=== PATIENT | female | born 2000 | race Caucasian/White ===

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

== ENCOUNTER 2022-05-14 18:41 | Emergency (ER) | payer OTHER, SELFPAY ==
[2022-05-14 18:50] VITALS: BP 127/60; PULSE 83; RESP 14; TEMP 36.9; O2SAT 99
[2022-05-14 18:57] VITALS: BP 127/60; PULSE 83; RESP 14; TEMP 36.9; O2SAT 99
--- NOTE | 2022-05-14 19:33 | ED.GENADULT ---
HPI - General Adult General Chief complaint: Dental/Oral Stated complaint: [place] tooth causing inflamation Source: patient Mode of arrival: ambulatory Limitations: no limitations History of Present Illness HPI narrative: Patient presents for evaluation of right lower dental pain for the last for 5 days. She reports that impacted wisdom tooth in the affected area. She tried taking 600 mg of ibuprofen with temporary relief of her pain. Pain is moderate, without descriptive quality. No fever, chills, nausea, vomiting, trismus or problems handling secretions. She does not smoke. Related Data Allergies Allergy/AdvReac Type Severity Reaction Status Date / Time butorphanol [From Stadol] Allergy Seizure Verified 05/14/22 18:55 Review of Systems Review of Systems: CONSTITUTIONAL: Denies fever, chills, or sweats. EYES: Denies visual changes, redness, or discharge. ENT: Reports right lower dental pain. Denies rhinorrhea, congestion, sore throat, or otalgia. CARDIOVASCULAR: Denies chest pain, palpitations, or edema. RESPIRATORY: Denies cough or dyspnea. GASTROINTESTINAL: Denies abdominal pain, nausea, vomiting, or diarrhea. GENITOURINARY: Denies dysuria or hematuria. SKIN: Denies rash or itching. MUSCULOSKELETAL: Denies back pain, joint pain, or myalgia. NEUROLOGIC: Denies headache, numbness, dizziness, or weakness. PSYCHIATRIC: Denies anxiety or depression. PMFSH Past Medical History Medical History Seizure Surgical History Surgical History No pertinent past surgical history Family History Family History Mother Family history non-contributory Social History Social History (Updated 05/14/22 @ 19:35 by [facility], ) Smoking status: Never smoker Living arrangements: with family Gender identity (if verbalized by the patient): Female Sexual Orientation (if Verbalized by the Patient): Straight or Heterosexual Spiritual care concerns: No Exam Narrative: GENERAL: Well-appearing, well-nourished, and in no acute distress. HEAD: Normocephalic, atraumatic. EYES: PERRLA and EOMI. ENT: Nares clear, no rhinorrhea or epistaxis. Mucous membranes moist. Oropharynx without tonsillar hypertrophy exudate or other lesions. Right lower wisdom tooth is partially impacted with swelling of the gumline surrounding the tooth. Bilateral TMs pearly montoya nonbulging NECK: Supple. No adenopathy or masses. No carotid bruits or JVD CHEST: Clear to auscultation. No respiratory distress. No wheezes rales or rhonchi HEART: Regular rate and rhythm. No murmur heard. Normal peripheral pulses. ABDOMEN: Soft, nontender, nondistended, normal active bowel sounds. EXTREMITIES: Normal range of motion. No edema. SKIN: Warm, dry, no rash. NEURO: No focal deficits. Alert and oriented x3. PSYCH: Normal mood and affect. Course Course Emergency Course: This is a 22-year-old female who presented for evaluation of right lower dental pain. She has evidence of to the patient. Will discharge ibuprofen 800 mg. And amoxicillin in the event that that she has a developing infection. Follow-up with dentist. Go to the ER for difficulty breathing or swelling. Patient in agreement with plan of care. Level of Care: Express Care Visit Vital Signs Vital signs: Vital Signs Temperature 36.9 C 05/14/22 18:50 Pulse Rate 83 05/14/22 18:50 Respiratory Rate 14 05/14/22 18:50 Blood Pressure 127/60 05/14/22 18:50 Pulse Oximetry 99 05/14/22 18:50 Oxygen Delivery Room Air 05/14/22 18:50 Temperature 36.9 C 05/14/22 18:57 Pulse Rate 83 05/14/22 18:57 Respiratory Rate 14 05/14/22 18:57 Blood Pressure 127/60 05/14/22 18:57 Pulse Oximetry 99 05/14/22 18:57 Oxygen Delivery Room Air 05/14/22 18:57 Medical Decision Making Vital S
== END 2022-05-14 19:39 | disposition home or self-care (01) ==
PROVIDERS: Emergency Provider Nurse Practitioner; PCP Obstetrics & Gynecology
DX: K01.1 Impacted teeth (principal)
CPT/HCPCS: 99213; G0463

== ENCOUNTER 2022-06-15 18:02 | Emergency (ER) | payer OTHER, SELFPAY ==
[2022-06-15 18:16] VITALS: BP 124/67; PULSE 74; RESP 16; TEMP 36.9; O2SAT 100
--- NOTE | 2022-06-15 19:05 | ED.GENADULT ---
HPI - General Adult General Chief complaint: Unspecified Stated complaint: tingling in left hand from IV Time Seen by Provider: 06/15/22 19:06 Source: patient, RN notes reviewed and old records reviewed Mode of arrival: ambulatory Limitations: no limitations History of Present Illness HPI narrative: 22 year old female who presents to express care with complaints of pain and feelings of numbness to her wrist and to her left index finger since having IV placed at [place] on the . Patient was seen at [facility] and was told to take Ibuprofen and Tylenol for discomfort and apply praveena wrap to area which patient states she did without improvement. Patient has full mobility of her left hand and wrist with no acute redness or swelling noted., no ecchymosis. Patient has full mobility of left hand and wrist with brisk capillary refill and strong left radial pulse. Patient is left hand dominant. MD complaint: tingling and numbness to left wrist and index finger from IV Onset (ago): day(s) (since 30 of May) Location: upper extremity (left radial wrist and left index finger) Radiation: other (from wrist left radial area IV site down left index finger reported) Severity scale (1-10): 6 Treatments prior to arrival: NSAID and other (praveena wrap) Related Data Allergies Allergy/AdvReac Type Severity Reaction Status Date / Time butorphanol [From Stadol] Allergy Seizure Verified 06/15/22 18:24 Review of Systems Review of Systems: CONSTITUTIONAL: Denies fever, chills, or sweats. EYES: Denies visual changes, redness, or discharge. ENT: Denies rhinorrhea, congestion, sore throat, or otalgia. CARDIOVASCULAR: Denies chest pain, palpitations, or edema. RESPIRATORY: Denies cough or dyspnea. GASTROINTESTINAL: Denies abdominal pain, nausea, vomiting, or diarrhea. GENITOURINARY: Denies dysuria or hematuria. SKIN: Denies rash or itching. no rash or inflammation or warmth at left wrist previous IV site. MUSCULOSKELETAL: Denies back pain, joint pain,reports pain to left radial aspect of wrist from previous IV site to left index finger with tingling and numbness sensations, or myalgia. NEUROLOGIC: Denies headache, numbness, or weakness. PSYCHIATRIC: Denies anxiety or depression. All systems reviewed & are unremarkable except as noted in HPI and below PMFSH Past Medical History Medical History Seizure Surgical History Surgical History No pertinent past surgical history Family History Family History Mother Family history non-contributory Social History Social History Smoking status: Never smoker Living arrangements: with family Gender identity (if verbalized by the patient): Female Sexual Orientation (if Verbalized by the Patient): Straight or Heterosexual Spiritual care concerns: No Comments At time of signature, agree with nursing past medical, surgical, social and family history. There is no relevant family history pertinent to the presenting complaint Exam Narrative: GENERAL: Well-appearing, well-nourished, and in no acute distress. HEAD: Normocephalic, atraumatic. EYES: PERRLA and EOMI. ENT: Nares clear, no rhinorrhea or epistaxis. Mucous membranes moist. NECK: Supple. no lymphadenopathy CHEST: Clear to auscultation. No respiratory distress. HEART: Regular rate and rhythm. No murmur heard. Normal peripheral pulses. ABDOMEN: Soft, nontender, nondistended, normal active bowel sounds. EXTREMITIES: Normal range of motion. No edema. movement of left wrist and left finger present, strong left radial pulse, fingers have brisk capillary refill.reports feeling of tingling or numbness left radial writ and index finger, hand warm pink and mobility intact. SKIN: Warm, dry, no rash. no warmth or redness or ecchymosis to left
== END 2022-06-15 19:27 | disposition home or self-care (01) ==
PROVIDERS: Emergency Provider Registered Nurse
DX: M25.532 Pain in left wrist (principal); M79.645 Pain in left finger(s)
CPT/HCPCS: 99213; G0463

== ENCOUNTER 2024-11-21 17:23 | Emergency (ER) | payer OTHER, SELFPAY ==
--- NOTE | ~2024-11-21 | XR_ITS ---
EXAMINATION: XR chest 2V, 11/21/2024 17:45 CDT HISTORY: sob/ant cp bilateral ribs COMPARISON: No comparisons available. Technique: 2 views obtained. Findings: The lungs are clear, no effusion. No pneumothorax. Heart is normal size. Mediastinal and hilar contours are within normal limits. Bony thorax no acute abnormality. Impression: No acute cardiopulmonary abnormality. Reviewed, dictated and finalized at location P. Impression: No acute cardiopulmonary abnormality.
--- OUTSIDE RECORDS SUMMARY | 2024-11-21 17:28 | XMS_ITS | Encounter Summary ---
Author Organization [facility] Healthcare Address [address] [place] [address] Care Team Providers Care Cow Washer Name Role Phone Oren Caballero MD Primary Care Provi juan Reason for Referral * MRI/CAT/PET Scan (Routine) - Closed Specialty Diagnoses / Procedures Referred By Contac t Referred To Contact Radiology Diagnoses Dysuria Procedures MRI Pelvis W WO Contrast MRI PELVIS W CONTRAST Megan Astorga MD Phone: tel: fax: [address] [phone] Referral ID Status Reason Start Date Expiration Date Visits Re quested Visits Authorized [id number] Closed 05/29/2024 06/28/2025 1 1 Encounter Details Date Type Department Care Team (Late st Contact Info) Description 05/29/2024 Community Orders [facility] [place] [id number] [place] [address] Dysuria (Primary Dx) Social History Tobacco Use Types Packs/Day Years Used Date Smoking Tobacco: Never Passive Smoke Exposure: Past Smokeless Tobacco: Never Alcohol Use Standard Drinks/Week Comments Not Currently 0 (1 standard drink = 0.6 oz pur e alcohol) Social Connection and Isolation Panel Answer Date Recorded In a typical week, how many times do you talk on the phone with family, friends, or neighbors? More than three times a week 02/17/2022 How often do you get togethe r with friends or relatives? More than three times a week 02/17/2022 How often do you attend chur ch or uatsdin services? Never 02/17/2022 Do you belong to any clubs o r organizations such as spiritism groups, unions, fraternal or athletic groups, or school groups? No 02/17/2022 How often do you attend meet ings of the clubs or organizations you belong to? Never 02/17/2022 Are you , , di vorced, , never , or living with a partner? Living with partner 02/17/2022 AUDIT-C Answer Date Recorded Frequency of Alcohol Consumption Not on file 06/19/2022 Q2: How many drinks containi ng alcohol do you have on a typical day when you are drinking? Patient does not drink Frequency of Binge Drinking Not on file 02/2022 Overall Financial Resource Strain (CARDIA) Answe r Date Recorded How hard is it for you to pa y for the very basics like food, housing, medical care, and heating? Not hard at all 02/17/2022 PHQ-2 Answer Date Recorded PHQ-2 Total Score (If total score is 3 or more points, staff should administer the PHQ-9) 0 04/29/2024 Hunger Vital Sign Answer Date Recorded Within the past 12 months, y ou worried that your food would run out before you got the money to buy more. Never true 05/20/19 25 Within the past 12 months, t he food you bought just didn't last and you didn't have money to get more. Never true 05/19/2024 PRAPARE - Transportation Answer Date Re corded In the past 12 months, has l ack of transportation kept you from medical appointments or from getting medications? No 01/21 In the past 12 months, has l ack of transportation kept you from meetings, work, or from getting things needed for daily living? No 02/17/2022 Housing Stability Vital Sign Answer Miki e Recorded In the last 12 months, was t here a time when you were not able to pay the mortgage or rent on time? No 02/17/2022 In the last 12 months, how many places have you lived? 1 02/17/2022 In the last 12 months, was t here a time when you did not have a steady place to sleep or slept in a custodial (including now)? No 02/17/2022 PHQ-9 Answer Date Recorded PHQ-9 Total Score 0 04/29/2024 Personal Safety Answer Date Recorded Have you ever been in or are you currently in a harmful physical or emotional relationship or is someone making you feel afraid or unsafe? Denies 03/28/2024 Comments No Sex and Gender Information Value Date Recorded Sex Assigned at Not on file Legal Sex Female 6:02 PM [employer] Gender Identity Female 06/26/2021 1:23 AM CDT Sexual Orientation Bisexual 06/26/2021 1: 23 AM CDT documented as of this encounter Plan of Treatment Not on file documented as of this encounter Results * MRI Pelvis W WO Contrast (06/10/2024 3:31 PM CDT) Anatomical Region Laterality Modality Pelvis N/A Magnetic Resonan ce 06/16/2024 1:3 4 PM CDT Narrative 06/16/2024 2:24 PM CDT EXAM DESCRIPTION: MRI PELVIS W WO CONTRAST REASON FOR STUDY: dysuria Chronic UTIs since she was a small child, patient states they are wanting to r/o urethral diverticula, voiding cystourethrogram done here 04/25/24 that showed Mild nonspecific patulous appearance of the urethra without definite evidence of a diverticulum, however there is significantly Suboptimal exam due to suboptimal distention of the urinary bladder with contrast due to persistent leakage of contrast from the urinary bladder into the urethra. TECHNIQUE: MRI of the pelvis performed without intravenous contrast according to the urethra protocol. All images stored on PACS. COMPARISON: Voiding urethrogram dated April 25, 2024. Pelvic ultrasound dated March 28, 2024 FINDINGS: BLADDER/URETHRA: No focal bladder wall thickening or nodularity. No diverticula RIGHT OVARY: Normal size. No masses. LEFT OVARY: Normal size. No masses. UTERUS: Normal size. No masses. Normal endometrium. Junctional zone normal. The IUD is in place. VAGINA: Normal. PELVIC SIDEWALL: Normal. No masses. LYMPH NODES: No pathologically enlarged lymph nodes. GI: Normal. MUSCULOSKELETAL: No abnormal marrow signal. OTHER: Physiological amount of free fluid is seen. IMPRESSION: Normal female pelvic MRI. No evidence of urethral diverticulum. THIS IS AN ELECTRONICALLY VERIFIED FINAL REPORT 06/16/2024 2:24 PM - Electronically signed by Terry Dash M.D. JA: BREANNA Report ID: [id number] Reading Location: [id number] Procedure Note Terry Dash MD - 06/16/2024 EXAM DESCRIPTION: MRI PELVIS W WO CONTRAST REASON FOR STUDY: dysuria Chronic UTIs since she was a small child, patient states they are wantingto r/o urethral diverticula, voiding cystourethrogram done here 04/25/24 that showed Mild nonspecific patulous appearance of the urethra withoutdefinite evidence of a diverticulum, however there is significantly Suboptimalexam due to suboptimal distention of the urinary bladder with contrast due to persistent leakage of contrast from the urinary bladder into the urethra. TECHNIQUE: MRI of the pelvis performed without intravenous contrast according to the urethra protocol. All images stored on PACS. COMPARISON: Voiding urethrogram dated April 25, 2024. Pelvic ultrasound dated March 28, 2024 FINDINGS: BLADDER/URETHRA: No focal bladder wall thickening or nodularity. No diverticula RIGHT OVARY: Normal size. No masses. LEFT OVARY: Normal size. No masses. UTERUS: Normal size. No masses. Normal endometrium. Junctional zone normal. The IUD is in place. VAGINA: Normal. PELVIC SIDEWALL: Normal. No masses. LYMPH NODES: No pathologically enlarged lymph nodes. GI: Normal. MUSCULOSKELETAL: No abnormal marrow signal. OTHER: Physiological amount of free fluid is seen. IMPRESSION: Normal female pelvic MRI. No evidence of urethral diverticulum. THIS IS AN ELECTRONICALLY VERIFIED FINAL REPORT 06/16/2024 2:24 PM - Electronically signed by Terry Dash M.D. JA: BREANNA Report ID: [id number] Reading Location: [id number] us Megan Abdalla MD IMG MRI PROCEDURES Final Resul t documented in this encounter Visit Diagnoses Diagnosis Dysuria- Primary Dysuria documented in this encounter Care Teams Cow Washer Relationship Specialty Start Date End Date Oren Caballero MD [address] [address] PCP - General Family Practice 11/07/23 documented as of this encounter
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
--- NOTE | 2024-11-21 17:30 | ED.CHESTPAIN ---
HPI - Chest Pain General Chief Complaint: Chest Pain Stated Complaint: Chest Pain/Rib Pain Time Seen by Provider: 11/21/24 17:30 Source: patient Mode of arrival: ambulatory Limitations: no limitations History of Present Illness HPI narrative: Dejah is a 24-year-old female patient presenting to the clinic today with complaints of chest pain off and on for 4 years however over the last 1.5 week she developed bilateral lower rib pain. She has seen cardiology for the chest pain and she had echo completed and it showed MVP. States the pain is worse with taking a deep breath. Is currently having pain over the anterior chest and over the bilateral lower ribs. Rates pain 6/10. Denies URI symptoms. No blood clotting disorder history. Does have an IUD- Mirena. Related Data Allergies Allergy/AdvReac Type Severity Reaction Status Date / Time butorphanol (From Stadol) Allergy Seizure Verified 11/21/24 17:30 Review of Systems Review of Systems: Pertinent positives per HPI. Patient denies any fever, chills, rash, headache, visual changes, dizziness, cough, shortness of breath, chest pain, palpitations, nausea, vomiting, diarrhea, constipation, abdominal pain, or any urinary issues. [facility] Past Medical History Medical History Seizure Surgical History Surgical History No pertinent past surgical history Family History Family History Mother Family history non-contributory Social History Social History Smoking status: Never smoker Living arrangements: with family Gender identity (if verbalized by the patient): Female Sexual Orientation (if Verbalized by the Patient): Straight or Heterosexual Spiritual care concerns: No Comments At the time of my signature, I reviewed and agree with the nursing past medical, surgical, social, and family history. There is no relevant family history pertinent to the patient complaint. Exam Narrative: General: Well-developed, well nourished, in no apparent distress Head: Normocephalic, atraumatic Eyes: Pupils equally round and reactive to light bilaterally, EOM intact, sclera and conjunctive clear, no discharge, lids normal Ears: TMs intact and clear, ear canals clear, no drainage, grossly hearing normal. Nose: Nares patent, no discharge, no inflammation, no sinus tenderness. Mouth: Oral pharynx without lesions or masses, good dentition, MMM. Neck: Supple, trachea midline, no enlargement of anterior or posterior cervical nodes, no thyroid masses or goiter palpable. Cardio: Regular rate and rhythm, s1 and s2 normal, no murmur appreciated. Anterior chest wall tenderness to palpation, right lower rib bilateral tenderness to palpation Resp: Clear to auscultation bilaterally, no rhonchi, rales, wheezing or rubs Course Course Emergency Course: Portions of this record may have been created with voice recognition software. Level of Care: Express Care Visit Vital Signs Vital signs: Vital Signs Temperature 36.6 C 11/21/24 17:33 Pulse Rate 86 11/21/24 17:33 Respiratory Rate 20 11/21/24 17:33 Blood Pressure 125/66 11/21/24 17:33 Pulse Oximetry 99 11/21/24 17:33 Oxygen Delivery Room Air 11/21/24 17:33 Temperature 36.6 C 11/21/24 17:33 Pulse Rate 86 11/21/24 17:33 Respiratory Rate 20 11/21/24 17:33 Blood Pressure 125/66 11/21/24 17:33 Pulse Oximetry 99 11/21/24 17:33 Oxygen Delivery Room Air 11/21/24 17:33 Vital signs reviewed MDM - Chest Pain MDM Narrative Medical decision making narrative: At the time of visit patient is resting comfortably on the exam table. Patient appears to be nontoxic. Complaints of chest pain off and on for 4 years however over the last 1.5 week she developed bilateral lower rib pain. She has seen cardiology for the chest pain and she had echo completed and it showed MVP. States the pain is worse with taking a deep breath. Is currently having pain over the anterior chest and over the bilateral lower ribs. Rates pain 6/10. Denies URI symptoms. No blood clotting disorder history. Does have an IUD- Mirena. Lung sounds are clear, heart rates regular rate, rhythm, anterior chest wall tenderness to palpation, and bilateral lower rib tenderness to palpation. EKG and chest x-ray was ordered. EKG: EKG shows sinus rhythm with a heart rate of 60 6 minutes with a possible right ventricular conduction delay no ST elevation, depression, or T-wave inversion Diagnostics: Chest x-rays negative for any acute cardiopulmonary process Plan: I suspect patient has acute chest wall pain versus pleuritic chest pain. Prescription for naproxen was sent to the pharmacy. Work note was given for the patient. Recommend follow-up with her PCP in 3-5 days. Supportive measures were discussed with the patient and they voiced understanding discharge instructions and agrees to treatment plan. Return precautions reviewed Differential Diagnosis Differential diagnosis: Likely fracture of rib, pneumothorax, stable angina, unstable angina pectoris, atypical chest pain, st elevation myocardial infarction, costochondritis, chest pain and other (Pleuritic chest pain, atypical chest pain) ECG Data EKG #1: Attestation: I personally reviewed and interpreted this ECG as follows: ECG completion date: 11/21/24 ECG completion time: 18:08 Prior ECG tracings: not available for review Interpretation: EKG shows sinus rhythm with a possible right ventricular conduction delay. Heart rate 66 beats per minute. No ST elevation, depression, or T-wave inversion. CA interval is 132 milliseconds, QRS durations 89 milliseconds, QT-QTC is 379-393 milliseconds, P-R-T axis -1 18 26 Discharge Plan Discharge Clinical Impression: Anterior chest wall pain Patient Disposition: Home Condition: Stable Instructions: Antibiotic Form, Chest Wall Pain (ED) Additional Instructions: EKG is reassuring in the clinic today. Chest x-ray is negative for any acute cardiopulmonary process. I suspect you are having chest wall pain verses pleuritic chest pain. Take naproxen as prescribed Increase fluids and stay well hydrated May take Tylenol additionally as needed for pain Follow-up with rehab/pre vocational counselor/PCP 3-5 days Go to the emergency room if symptoms worsen-increase in chest pain, shortness of breath, weakness, lethargy, or any other concerning symptoms Patient Language: Yakut Prescriptions: New naproxen 500 mg tablet 500 mg PO BID PRN (Reason: pain) 7 Days Qty: 14 0RF Follow-up/Referrals: Federico,Oren Jain MD [Primary Care Provider, Unknown] Stand Alone Forms: Work/School Release IP Time of Disposition: 18:04 Quality NIHSS Nursing Documentation ED NIHSS nursing documentation: reviewed/agree
[2024-11-21 17:33] VITALS: BP 125/66; PULSE 86; RESP 20; TEMP 36.6; O2SAT 99
--- NOTE | 2024-11-21 17:43 | ECG_ITS ---
Test Date: 2024-11-21 18:00:17 Measurements Intervals [place] Rate: 66 P: -1 DE: 132 QRS: 18 QRSD: 89 T: 26 QT: 379 QTc: 399 Interpretive Statements SINUS RHYTHM POSSIBLE RIGHT VENTRICULAR CONDUCTION DELAY BORDERLINE ECG No previous ECG available for comparison Electronically Signed On 11-21-2024 19:21:22 CDT by Shabbir Ibarra D.O.
== END 2024-11-21 18:18 | disposition home or self-care (01) ==
PROVIDERS: Emergency Provider Nurse Practitioner Family; PCP Family Medicine
DX: R07.89 Other chest pain (principal); I34.1 Nonrheumatic mitral (valve) prolapse
CPT/HCPCS: 71046; 93005; 99213; G0463

== ENCOUNTER 2025-02-05 16:33 | Emergency (ER) | payer OTHER, SELFPAY ==
--- OUTSIDE RECORDS SUMMARY | 2025-02-05 16:37 | XMS_ITS | Encounter Summary ---
Author Organization [facility] Address [address] [place] [address] Care Team Providers Care Inner Tube Inserter Name Role Phone Oren Caballero MD Primary Care Provi juan Reason for Referral * MRI/CAT/PET Scan (Routine) - Closed Specialty Diagnoses / Procedures Referred By Contac t Referred To Contact Radiology Diagnoses Dysuria Procedures MRI Pelvis W WO Contrast MRI PELVIS W CONTRAST Megan Astorga MD Phone: tel: fax: [address] [phone] Referral ID Status Reason Start Date Expiration Date Visits Re quested Visits Authorized [id number] Closed 05/29/2024 06/28/2025 1 1 Encounter Details Date Type Department Care Team (Late st Contact Info) Description 05/29/2024 Community Orders [facility] [address] [place] [address] Dysuria (Primary Dx) Social History Tobacco Use [...] often do you attend chur ch or episcopalian services? Never 02/17/2022 Do you belong to any clubs o r organizations such as cheondoism groups, unions, fraternal or athletic groups, or [...] place to sleep or slept in a fpc (including now)? No 02/17/2022 PHQ-9 Answer Date [...] on file Legal Sex Female 6:02 PM OVER [employer]PER[employer]OR Gender Identity Female 06/26/2021 1:23 AM CDT Sexual Orientation Bisexual 06/26/2021 1: 23 AM CDT documented as of this encounter Plan of Treatment Not on file documented as of this encounter Results * MRI Pelvis W WO Contrast (06/10/2024 3:31 PM CDT) Anatomical Region Laterality Modality Pelvis N/A Magnetic Resonan ce 06/16/2024 1:34 PM CDT Narrative 06/16/2024 2:24 PM CDT [...] Terry Dash M.D. JA: BREANNA Report ID: [id number] Reading Location: [id number] Procedure Note Terry Dash MD - 06/16/2024 [...] Terry Dash M.D. JA: BREANNA Report ID: [id number] Reading Location: [id number] us Megan Abdalla MD IMG MRI PROCEDURES Final Resul t documented in this encounter Visit Diagnoses Diagnosis Dysuria- Primary Dysuria documented in this encounter Care Teams Inner Tube Inserter Relationship Specialty Start Date End Date Oren Caballero MD [address] [facility] [address] [place] [address] PCP - General Family Practice 11/07/23 documented as of this encounter
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
--- OUTSIDE RECORDS SUMMARY | 2025-02-05 16:38 | XMS_ITS | Encounter Summary ---
Author Organization [facility] Healthcare Address [address] [place] [address] Care Team Providers Care Safe And Vault Mechanic Name Role Phone Oren Caballero MD Primary Care [facility] Encounter Details Date Type Department Care Team (Late st Contact Info) Description 12/09/2024 Results Follow-Up [facility] Primary Care at [address] [place] [address] Oren Caballero MD [address] [place] [address] Stress Treadmill Test, 48 HR Holter Monitor Social History Tobacco Use Types Packs/Day Years [...] often do you attend chur ch or confucianist services? Never 02/17/2022 Do you belong to any clubs o r organizations such as yazdanism groups, unions, fraternal or athletic groups, or [...] place to sleep or slept in a senior care (including now)? 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
[2025-02-05 16:42] VITALS: BP 125/81; PULSE 74; RESP 20; TEMP 36.6; O2SAT 99
--- NOTE | 2025-02-05 17:07 | ED_ITS ---
HPI - Back Pain/Injury General Chief Complaint: Back Pain/Injury Stated Complaint: Back Pain Time Seen by Provider: 02/05/25 16:55 Source: patient and RN notes reviewed Mode of arrival: ambulatory Limitations: no limitations History of Present Illness HPI Narrative: 25-year-old female presents Express Care complaining of low back pain that started 2 days ago. Patient is on any apparent injury but she reports she works at [employer] and lifts heavy items frequently. Patient reports pain to her bilateral lower back that radiates pain into her bilateral thighs. Patient denies any saddle anesthesia, numbness, tingling, weakness, loss of bowel or bladder function, urinary symptoms, or any other symptoms. Patient has not taken anything to help with symptoms. Related Data Allergies Allergy/AdvReac Type Severity Reaction Status Date / Time butorphanol (From Stadol) Allergy Seizure Verified 02/05/25 16:42 Review of Systems Review of Systems: CONSTITUTIONAL: Denies fever, chills, or sweats. EYES: Denies visual changes, redness, or discharge. ENT: Denies rhinorrhea, congestion, sore throat, or otalgia. CARDIOVASCULAR: Denies chest pain, palpitations, or edema. RESPIRATORY: Denies cough or dyspnea. GASTROINTESTINAL: Denies abdominal pain, nausea, vomiting, or diarrhea. GENITOURINARY: Denies dysuria or hematuria. SKIN: Denies rash or itching. MUSCULOSKELETAL: Positive for low back pain. Negative for joint pain, or myalgia. NEUROLOGIC: Denies headache, saddle anesthesia, loss of bowel or bladder function, tingling, numbness, or weakness. PSYCHIATRIC: Denies anxiety or depression. All other systems reviewed are negative, except as documented in HPI. [facility] Past Medical History Medical History Seizure Surgical History Surgical History No pertinent past surgical history Family History Family History Mother Family history non-contributory Social History Social History Smoking status: Never smoker Living arrangements: with family Gender identity (if verbalized by the patient): Female Sexual Orientation (if Verbalized by the Patient): Straight or Heterosexual Spiritual care concerns: No Comments At the time of my signature, I reviewed and agree with the nursing past medical, surgical, social, and family history. There is no relevant family history pertinent to the patient complaint. Exam Narrative: GENERAL: This is a well-nourished, well-developed adult, in no apparent distress. They are non ill-appearing, nontoxic appearing. HEAD: normocephalic, atraumatic. EYES: Sclera clear/white. Conjunctiva normal. Vision is grossly intact. Extraocular movements intact EARS: External ears normal, . Hearing grossly intact. NOSE: External nose normal THROAT: Mucous membranes moist, NECK: Neck supple, CARDIOVASCULAR: Regular rate and rhythm RESPIRATORY: Respiratory rate normal, respiratory effort nonlabored, no respiratory distress SKIN: warm, Dry, intact with no suspicious lesions or rash, good texture and turgor. NEURO: awake, alert, and oriented to person, place and time. There were no obvious focal neurologic abnormalities. EXTREMITIES: No joint tenderness, effusion, or edema noted. 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 No CVA tenderness. No cervical, thoracic, lumbar point tenderness. Course Course Level of Care: Express Care Visit Vital Signs Vital signs: Vital Signs Temperature 97.8 F 02/05/25 16:42 Pulse Rate 74 02/05/25 16:42 Respiratory Rate 20 02/05/25 16:42 Blood Pressure 125/81 02/05/25 16:42 Pulse Oximetry 99 02/05/25 16:42 Oxygen Delivery Room Air 02/05/25 16:42 Temperature 97.8 F 02/05/25 16:42 Pulse Rate 74 02/05/25 16:42 Respiratory Rate 20 02/05/25 16:42 Blood Pressure 125/81 02/05/25 16:42 Pulse Oximetry 99 02/05/25 16:42 Oxygen Delivery Room Air 02/05/25 16:42 [facility] Narrative Medical decision making narrative: Patient likely has a lumbar strain with sciatica. Will send her home with muscle relaxers and prednisone. No cauda equina symptoms. Discussed supportive care and pain management. Discussed physical exam findings. Advised supportive measures and signs/symptoms to go to the ER. Pt is appropriate for outpt treatment and f/u. Differential Diagnosis Differential Diagnosis: Lumbar strain, lumbar radiculopathy, herniated disc, bulging disc Critical Care Time Critical Care Time Critical Care Time: No Discharge Plan Discharge Clinical Impression: Back pain Qualifiers: Back pain location: low back pain Chronicity: acute Back pain laterality: bilateral Sciatica presence: with sciatica Sciatica laterality: bilateral sciatica Qualified Code(s): M54.42 - Lumbago with sciatica, left side Patient Disposition: Home Condition: Stable Instructions: Low Back Strain (ED), Lower Back Exercises (ED) Additional Instructions: Take the muscle relaxer as directed. Do not drive or operate heavy machine, or work while taking the medication as it can make you drowsy. Take the prednisone as directed. You may take ibuprofen 600 mg to 800 mg every 6-8 hours. Do not exceed more than 800 mg of ibuprofen per dose. Do not exceed more than 3200 mg ibuprofen in a day. You may take up to 1000 mg Tylenol every 6-8 hours. Do not exceed 1000 mg per dose, do exceed more than 4000 mg of Tylenol in a day. Please follow-up with your primary care provider if pain persist Rest. Avoid pushing, pulling, lifting --running or excessive walking-- or anything that worsens the symptoms You may try stretching your lower back or doing spinal decompression to help with symptoms. Go to the emergency department if you develop any numbness or tingling to your groin, weakness in your legs, or any loss of bowel or bladder function. Patient Language: Scottish Prescriptions: New prednisone 20 mg tablet 40 mg PO DAILY 5 Days Qty: 10 0RF methocarbamol 750 mg tablet 750 mg PO TID Qty: 12 0RF Follow-up/Referrals: UNKNOWN,DOCTOR [Primary Care Provider] Stand Alone Forms: Work/School Release IP Time of Disposition: 17:05
== END 2025-02-05 17:09 | disposition home or self-care (01) ==
DX: M54.42 Lumbago with sciatica, left side (principal)
CPT/HCPCS: 99213; G0463